=== PATIENT | male | born 1980 | race American Indian/Alaskan Native ===

== ENCOUNTER 2022-01-26 02:11 | Emergency (ER) | payer OTHER ==
[2022-01-26] MEDS ORDERED: ASPIRIN 325 MG TAB PO ONE (02:22)
[2022-01-26 02:57] LABS: Basophils % (Auto) 0.6 % (0.0-1.8); Eosinophils # (Auto) 0.1 K/mm3 (0.0-0.4); Eosinophils % (Auto) 1.8 % (0.0-4.3); Hematocrit 47.8 % (35.5-45.6); Hemoglobin 16.4 gm/dl (11.8-15.2); Lymphocytes # (Auto) 2.3 K/mm3 (1.2-5.4); Lymphocytes % (Auto) 48.6 % (13.4-35.0); Mean Corpuscular HGB Conc 34 % (32-34); Mean Corpuscular Volume 87 fl (84-94); Monocytes # (Auto) 0.5 K/mm3 (0.0-0.8); Platelet Count 184 K/mm3 (140-440); Red Cell Distribution Width 13.1 % (13.2-15.2)
--- NOTE | 2022-01-26 02:59 | XRay Report ---
CHEST 2 VIEWS INDICATION / CLINICAL INFORMATION: chest pain. COMPARISON: None available. FINDINGS: SUPPORT DEVICES: None. HEART / MEDIASTINUM: No significant abnormality. LUNGS / PLEURA: No significant pulmonary or pleural abnormality. No pneumothorax. BONES: No significant osseous abnormality. ADDITIONAL FINDINGS: No significant additional findings. IMPRESSION: 1. No active cardiopulmonary disease. Signer Name: Abdiel Dumont II, MD Signed: 01/26/2022 2:54 AM Workstation Name: [id number]
[2022-01-26 03:12] LABS: Alanine Aminotransferase 32 units/L (7-56); Albumin 4.8 g/dL (3.9-5); BUN/Creatinine Ratio 7; Blood Urea Nitrogen 8 mg/dL (9-20); Calcium 9.5 mg/dL (8.4-10.2); Hemolysis Index 31
--- NOTE | 2022-01-26 07:51 | Emergency Department Report ---
ED General Adult HPI - General Chief complaint: Chest Pain Stated complaint: CHEST PAIN/RAPID HEARTBEAT Time Seen by Provider: 01/26/22 07:34 Source: patient Mode of arrival: Ambulatory Limitations: No Limitations - History of Present Illness Initial comments: Patient is a 41-year-old male who comes to the ER complaining of anxiety. He does have a history of hypertension. However, he thinks that he is allergic to losartan. He thinks that that makes him anxious. Think he does have some anxiety and he is medically noncompliant. I encouraged him to take his blood pressure medicines as instructed. We discussed the pros and cons of hypertension versus anxiety. He is accompanied by family member who endorses his anxiety. Patient has been here all night waiting to be seen. On my exam he is denying any complaints. He is calm cooperative. He does endorse anxiety and says he does not understand where it comes from. He has had it for some time. He does not see anybody for it. He has no SI or HI. Severity scale (0 -10): 0 Improves with: none Worsens with: none Associated Symptoms: denies other symptoms. denies: confusion, chest pain, cough, diaphoresis, fever/chills, headaches, loss of appetite, malaise, nausea/vomiting, rash, seizure, shortness of breath, syncope, weakness Treatments Prior to Arrival: none - Related Data Allergies Allergy/AdvReac Type Severity Reaction Status Date / Time losartan Allergy Unknown Verified 01/26/22 07:51 ED Review of Systems ROS: Stated complaint: CHEST PAIN/RAPID HEARTBEAT Other details as noted in HPI Comment: All other systems reviewed and negative ED Past Medical Hx - Past Medical History Previous Medical History?: Yes Hx Hypertension: Yes Additional medical history: Anxiety - Surgical History Past Surgical History?: No - Family History Family history: no significant - Social History Smoking Status: Never Smoker Substance Use Type: None ED Physical Exam - General Limitations: No Limitations General appearance: alert, in no apparent distress - Head Head exam: Present: atraumatic, normocephalic - Eye Eye exam: Present: normal appearance - ENT ENT exam: Present: mucous membranes moist - Neck Neck exam: Present: normal inspection - Respiratory Respiratory exam: Present: normal lung sounds bilaterally. Absent: respiratory distress - Cardiovascular Cardiovascular Exam: Present: regular rate, normal rhythm. Absent: systolic murmur, diastolic murmur, rubs, gallop - GI/Abdominal GI/Abdominal exam: Present: soft, normal bowel sounds - Rectal Rectal exam: Present: deferred - Extremities Exam Extremities exam: Present: normal inspection - Back Exam Back exam: Present: normal inspection - Neurological Exam Neurological exam: Present: alert, oriented X3 - Psychiatric Psychiatric exam: Present: normal affect, normal mood - Skin Skin exam: Present: warm, dry, intact, normal color. Absent: rash ED Course Vital Signs 01/26/22 01/26/22 07:58 08:13 Temperature 98.7 F 98.2 F Pulse Rate 95 H 60 Respiratory 18 16 Rate Blood Pressure 158/106 150/90 [Left] O2 Sat by Pulse 97 98 Oximetry ED Medical Decision Making - Lab Data Result diagrams: 01/26/22 02:34 01/26/22 02:34 - EKG Data Rate: normal - EKG Data When compared to previous EKG there are: no significant change Interpretation: no acute changes - Radiology Data Radiology results: report reviewed, image reviewed No acute process - Medical Decision Making Lab Results 01/26/22 01/26/22 01/26/22 Range/Units 02:34 02:34 05:29 WBC 4.7 (4.5-11.0) K/mm3 RBC 5.50 H (3.65-5.03) M/mm3 Hgb 16.4 H (11.8-15.2) gm/dl Hct 47.8 H (35.5-45.6) % MCV 87 (84-94) fl MCH 30 (28-32) pg MCHC 34 (32-34) % RDW 13.1 L (13.2-15.2) % Plt Count 184 (140-440) K/mm3 Lymph % (Auto) 48.6 H (13.4-35.0) % Gage % (Auto) 11.0 H (0.0-7.3) % Eos % (Auto) 1.8 (0.0-4.3) % Baso % (Auto) 0.6 (0.0-1.8) % Lymph # (Auto) 2.3 (1.2-5.4) K/mm3 Gage # (Auto) 0.5 (0.0-0.8) K/mm3 Eos # (Auto) 0.1 (0.0-0.4) K/mm3 Baso # (Auto) 0.0 (0.0-0.1) K/mm3 Seg Neutrophils % 38.0 L (40.0-70.0) % Seg Neutrophils # 1.8 (1.8-7.7) K/mm3 Sodium 138 (137-145) mmol/L Potassium 3.6 (3.6-5.0) mmol/L Chloride 101.0 (98-107) mmol/L Carbon Dioxide 21 L (22-30) mmol/L Anion Gap 20 mmol/L BUN 8 L (9-20) mg/dL Creatinine 1.1 (0.8-1.3) mg/dL Estimated GFR > 60 ml/min BUN/Creatinine Ratio 7 % Glucose 141 H (75-100) mg/dL Calcium 9.5 (8.4-10.2) mg/dL Total Bilirubin 0.40 (0.1-1.2) mg/dL AST 21 (5-40) units/L ALT 32 (7-56) units/L Alkaline Phosphatase 73 (35-129) units/L Troponin T < 0.010 < 0.010 (0.00-0.029) ng/mL Total Protein 7.3 (6.3-8.2) g/dL Albumin 4.8 (3.9-5) g/dL Albumin/Globulin Ratio 1.9 % Vital Signs 01/26/22 01/26/22 07:58 08:13 Temperature 98.7 F 98.2 F Pulse Rate 95 H 60 Respiratory 18 16 Rate Blood Pressure 158/106 150/90 [Left] O2 Sat by Pulse 97 98 Oximetry Labs noted Trop negative x2 Blood pressure mildly elevated Patient neurologically intact He is ambulatory, nontoxic and taking p.o. Vital signs are stable. His blood pressure and heart rate are downtrending since he is come to the ER. Patient educated on the importance of medication compliance Patient being discharged home with discharge plan of care including diet, medication, activity and follow-up. He and his family verbalized understanding of plan of care - Differential Diagnosis Acute on chronic hypertension, anxiety Critical care attestation.: If time is entered above; I have spent that time in minutes in the direct care of this critically ill patient, excluding procedure time. ED Disposition Clinical Impression: Anxiety, History of chronic hypertension, Medically noncompliant Disposition: 01 HOME / SELF CARE / HOMELESS Is pt being admited?: No Does the pt Need Aspirin: No Condition: Stable Instructions: Hypertension, Adult, [id number], Managing Anxiety, Adult Additional Instructions: Take your medications as prescribed Follow-up with PCP. Have given you referral below See attached information on anxiety reduction Referrals: KARRIE HUDSON MD [Primary Care Provider] - 3-5 Days Time of Disposition: 08:04
[2022-01-26 08:15] VITALS: BP 150/90
--- NOTE | 2022-01-26 10:26 | Electrocardiograph Report ---
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
== END 2022-01-26 08:15 | disposition home or self-care (01) ==
LOC: ED 02:11
DX: F41.9 Anxiety disorder, unspecified (principal); I10 Essential (primary) hypertension; Z88.8 Allergy status to other drugs, medicaments and biological substances; Z79.899 Other long term (current) drug therapy
CPT/HCPCS: 36415; 71046; 80053; 84484; 85025; 93005; 99283

== ENCOUNTER 2022-01-31 20:24 | Emergency (ER) | payer OTHER ==
[2022-01-31 20:46] VITALS: BP 133/87
[2022-01-31] MEDS ORDERED: ASPIRIN 325 MG TAB PO ONE (20:48)
--- NOTE | 2022-01-31 21:10 | XRay Report ---
CHEST 2 VIEWS INDICATION / CLINICAL INFORMATION: CHEST PAIN. COMPARISON: 01/26/2022 FINDINGS: SUPPORT DEVICES: None. HEART / MEDIASTINUM: No significant abnormality. LUNGS / PLEURA: No significant pulmonary or pleural abnormality. No pneumothorax. ADDITIONAL FINDINGS: No significant additional findings. IMPRESSION: 1. No acute findings. Signer Name: Guillermo Diehl MD Signed: 01/31/2022 9:06 PM Workstation Name: [id number]
[2022-01-31 21:18] LABS: Basophils % (Auto) 0.4 % (0.0-1.8); Eosinophils # (Auto) 0.1 K/mm3 (0.0-0.4); Eosinophils % (Auto) 1.5 % (0.0-4.3); Hematocrit 47.6 % (35.5-45.6); Hemoglobin 16.8 gm/dl (11.8-15.2); Lymphocytes # (Auto) 1.9 K/mm3 (1.2-5.4); Lymphocytes % (Auto) 41.7 % (13.4-35.0); Mean Corpuscular HGB Conc 35 % (32-34); Mean Corpuscular Volume 86 fl (84-94); Monocytes # (Auto) 0.5 K/mm3 (0.0-0.8); Monocytes % (Auto) 11.4 % (0.0-7.3); Platelet Count 185 K/mm3 (140-440); Red Blood Count 5.52 M/mm3 (3.65-5.03); Red Cell Distribution Width 13.8 % (13.2-15.2)
[2022-01-31 21:40] LABS: Alanine Aminotransferase 30 units/L (7-56); Albumin 4.9 g/dL (3.9-5); BUN/Creatinine Ratio 12; Blood Urea Nitrogen 14 mg/dL (9-20); Calcium 9.7 mg/dL (8.4-10.2); Hemolysis Index 6
--- NOTE | 2022-02-01 05:12 | Emergency Department Report ---
ED General Adult HPI - General Chief complaint: Chest Pain Stated complaint: CHEST PAIN/HEART RATE HIGH WHEN SLEEP Source: patient Mode of arrival: Ambulatory Limitations: No Limitations - History of Present Illness Initial comments: Patient is a 41-year-old -[place] male with a history of anxiety and hypertension who presents to the ED with complaint of persistent palpitations and left-sided chest pain intermittently for the last 3 months. Patient states that he has previously been evaluated by his primary care physician and insulation board calender operator and no acute abnormalities were found in his tests. Patient also states that 3 days ago he had a normal stress test with his insulation board calender operator but stated that he also has a lot of social issues at this time making him anxious and with the frequent palpitations and elevated heart rate worsened by his anxiety he is scared of going to sleep and therefore is unable to sleep. Patient states that this anxiety and palpitations has persisted especially in the last 2 weeks because of what he terms as "cardiac problems" that he thinks he might have. Patient denies dizziness, syncope, shortness of breath, nausea and vomiting, diaphoresis, headache, abdominal pain, back pain, neck pain, jaw pain, change in vision, fever and chills or cough. MD Complaint: left sided chest pain and palpitation -: Sudden, month(s) (3) Location: chest Radiation: non-radiation Severity scale (0 -10): 3 Quality: dull Consistency: intermittent Improves with: none Worsens with: none Associated Symptoms: denies other symptoms, chest pain (Left-sided), loss of appetite, other (Anxiety). denies: confusion, cough, diaphoresis, fever/chills, headaches, malaise, nausea/vomiting, rash, seizure, shortness of breath, syncope, weakness Treatments Prior to Arrival: none - Related Data Previous Rx's Medication Instructions Recorded Last Taken Type hydrOXYzine PAMOATE [Vistaril] 50 mg PO Q8HR PRN #30 capsule 02/01/22 Unknown Rx Allergies Allergy/AdvReac Type Severity Reaction Status Date / Time losartan Allergy Unknown Verified 01/26/22 07:51 ED Review of Systems ROS: Stated complaint: CHEST PAIN/HEART RATE HIGH WHEN SLEEP Other details as noted in HPI Constitutional: denies: chills, fever Eyes: denies: eye pain, eye discharge, vision change ENT: denies: ear pain, throat pain Respiratory: denies: cough, shortness of breath, wheezing Cardiovascular: chest pain (Left-sided chest pain), palpitations (Trach) Endocrine: no symptoms reported Gastrointestinal: denies: abdominal pain, nausea, vomiting, diarrhea Genitourinary: denies: urgency, dysuria, frequency, hematuria, testicular pain, testicular mass Musculoskeletal: denies: back pain, joint swelling, arthralgia Skin: denies: rash, lesions Neurological: denies: headache, weakness, paresthesias Psychiatric: anxiety. denies: depression, auditory hallucinations, visual hallucinations, homicidal thoughts, suicidal thoughts Hematological/Lymphatic: denies: easy bleeding, easy bruising ED Past Medical Hx - Past Medical History Hx Hypertension: Yes Hx Psychiatric Treatment: Yes (Anxiety) Additional medical history: Anxiety - Social History Smoking Status: Never Smoker Substance Use Type: None - Medications Home Medications: Home Medications Medication Instructions Recorded Confirmed Last Taken Type hydrOXYzine PAMOATE [Vistaril] 50 mg PO Q8HR PRN #30 capsule 02/01/22 Unknown Rx ED Physical Exam - General Limitations: No Limitations General appearance: alert, in no apparent distress - Head Head exam: Present: atraumatic, normocephalic, normal inspection - Eye Eye exam: Present: normal appearance, PERRL, EOMI Pupils: Present: normal accommodation - ENT ENT exam: Present: normal exam, normal orophraynx, mucous membranes moist, TM's normal bilaterally, normal external ear exam - Neck Neck exam: Present: normal inspection, full ROM. Absent: tenderness - Respiratory Respiratory exam: Present: normal lung sounds bilaterally. Absent: respiratory distress, wheezes, rales, rhonchi, chest wall tenderness, accessory muscle use, decreased breath sounds, prolonged expiratory - Cardiovascular Cardiovascular Exam: Present: normal rhythm, tachycardia, normal heart sounds. Absent: systolic murmur, diastolic murmur, rubs, gallop - GI/Abdominal GI/Abdominal exam: Present: soft, normal bowel sounds. Absent: tenderness, guarding, rebound, hyperactive bowel sounds, hypoactive bowel sounds, organomegaly, mass - Extremities Exam Extremities exam: Present: normal inspection, full ROM, normal capillary refill - Back Exam Back exam: Present: normal inspection, full ROM. Absent: CVA tenderness (R), CVA tenderness (L), muscle spasm, paraspinal tenderness, vertebral tenderness - Neurological Exam Neurological exam: Present: alert, oriented X3, CN II-XII intact, normal gait, reflexes normal - Psychiatric Psychiatric exam: Present: normal affect, normal mood - Skin Skin exam: Present: warm, dry, intact, normal color. Absent: rash ED Course Vital Signs 01/31/22 20:32 Temperature 98.7 F Pulse Rate 108 H Respiratory 18 Rate Blood Pressure 133/87 O2 Sat by Pulse 100 Oximetry ED Medical Decision Making - Lab Data Result diagrams: 01/31/22 20:52 01/31/22 20:52 - EKG Data EKG shows normal: sinus rhythm Rate: normal - EKG Data Interpretation: normal EKG 02/01/22 05:30 EKG shows normal sinus rhythm with a ventricular rate of [address] elevation probably normal early repolarization patterns and leads V1, V2 and V3. - Radiology Data Radiology results: report reviewed, image reviewed [facility] [address] [place] [address] XRay Report Signed Patient: POOL AGUILAR MR#: [id number] : 1980 Acct:[id number] Age/Sex: 41 / M ADM Date: 01/31/22 Loc: ED Attending Dr: Ordering Physician: SULEIMAN RODRÍGUEZ MD Date of Service: 01/31/22 Procedure(s): XR chest routine 2V Accession Number(s): [id number] cc: ED MD ANNE Fluoro Time In Minutes: CHEST 2 VIEWS INDICATION / CLINICAL INFORMATION: CHEST PAIN. COMPARISON: 01/26/2022 FINDINGS: SUPPORT DEVICES: None. HEART / MEDIASTINUM: No significant abnormality. LUNGS / PLEURA: No significant pulmonary or pleural abnormality. No pneumothorax. ADDITIONAL FINDINGS: No significant additional findings. IMPRESSION: 1. No acute findings. Signer Name: Guillermo Diehl MD Signed: 01/31/2022 9:06 PM Workstation Name: [id number] Transcribed By: CW Dictated By: JASMIN DIEHL MD Electronically Authenticated By: JASMIN DIEHL MD Signed Date/Time: 01/31/222105 DD/ 05 TD/TT: - Medical Decision Making This is a 41-year-old -[place] male with a history of anxiety and hypertension who presents to the ED with complaint of persistent palpitations and left-sided chest pain intermittently for the last 3 months. Patient states that he has previously been evaluated by his primary care physician and insulation board calender operator and no acute abnormalities were found in his tests. Patient also states that 3 days ago he had a normal stress test with his insulation board calender operator but stated that he also has a lot of social issues at this time making him anxious and with the frequent palpitations and elevated heart rate worsened by his anxiety he is scared of going to sleep and therefore is unable to sleep. Patient states that this anxiety and palpitations has persisted especially in the last 2 weeks because of what he terms as "cardiac problems" that he thinks he might have. In the ED, patient is alert and oriented x3 and is not in any distress. EKG shows normal sinus rhythm with a ventricular rate of [address] elevation probably normal early repolarization pattern in leads V1 through lead V3. Chest x-ray showed no acute cardiopulmonary abnormalities abnormalities. All lab test results were reviewed including initial, 3-hour and 6-hour troponin levels were all nonactionable. Patient's heart score is 1, and patient has had multiple cardiac related tests including most recent stress test 3 days ago which were all normal. Patient symptoms are likely due to anxiety given the social issues he may be going through at this time as well as the fixation he has regarding a possible cardiac condition despite reassurance by his insulation board calender operator during the month mainly visits in the last 3 months. Patient was therefore discharged home on Vistaril and advised to follow-up with his primary care physician in 5 to 7 days for reevaluation or return to the ED immediately if symptoms get worse. - Differential Diagnosis ACS; Pneumonia, PE; Costochondritis; Anxiety Critical care attestation.: If time is entered above; I have spent that time in minutes in the direct care of this critically ill patient, excluding procedure time. ED Disposition Clinical Impression: Anxiety as acute reaction to exceptional stress, Intermittent palpitations, Acute nonspecific chest pain with low risk of coronary artery disease Disposition: 01 HOME / SELF CARE / HOMELESS Is pt being admited?: No Does the pt Need Aspirin: No Condition: Stable Instructions: Generalized Anxiety Disorder, Adult, Chest Pain (ED), Nonspecific Chest Pain, Adult, [id number], Palpitations, [id number] Additional Instructions: All lab test results were reviewed and are all nonactionable. Chest x-ray showed no acute cardiopulmonary abnormalities or pneumonitis. Your symptoms are likely due to anxiety since all lab test results previously performed by your primary care physician, your insulation board calender operator and in this ED have all been unremarkable. Therefore take medications with food, drink plenty of fluids and follow-up with your primary care physician in 5 to 7 days for reevaluation or return to the ED immediately if symptoms get worse. Prescriptions: hydrOXYzine PAMOATE [Vistaril] 50 mg PO Q8HR PRN #30 capsule PRN Reason: Anxiety Referrals: KARRIE HUDSON MD [Primary Care Provider] - 3-5 Days Forms: Work/School Release Form(ED) Time of Disposition: 05:12 Print Language: FAROESE
--- NOTE | 2022-02-01 11:23 | Electrocardiograph Report ---
[facility] Test Date: 2022-01-31 Test Time: 20:35:49 Pat Name: POOL AGUILAR Department: Room: Gender: M Wireless Manager: KAROL : 1980 Requested By: RACHEAL SCHUMACHER Order Number: [id number] Reading MD: Vasiliy Ballard Measurements Intervals Strang Rate: 86 P: 57 NH: 156 QRS: 83 QRSD: 82 T: 7 QT: 328 QTc: 393 Interpretive Statements Sinus rhythm nonspecific st-t Compared to ECG 01/26/2022 02:20:06 Electronically Signed On 02-01-2022 11:23:03 EDT by Vasiliy Ballard
== END 2022-02-01 07:56 | disposition home or self-care (01) ==
LOC: ED 20:24
DX: F43.0 Acute stress reaction (principal); R07.89 Other chest pain; F41.1 Generalized anxiety disorder; I10 Essential (primary) hypertension; Z88.8 Allergy status to other drugs, medicaments and biological substances; Z79.899 Other long term (current) drug therapy
CPT/HCPCS: 36415; 71046; 80053; 84484; 85025; 93005; 99283

== ENCOUNTER 2022-02-13 21:58 | Emergency (ER) | payer OTHER ==
[2022-02-13] MEDS ORDERED: ASPIRIN 325 MG TAB PO ONE (22:13)
[2022-02-13] MEDS ORDERED: SODIUM CHLORIDE 0.9% 1000 ML 1,000 ML IV ONE (22:42)
--- NOTE | 2022-02-13 22:43 | XRay Report ---
CHEST 2 VIEWS INDICATION / CLINICAL INFORMATION: CHEST PAIN. COMPARISON: 2 views of the chest from 01/31/2022. FINDINGS: SUPPORT DEVICES: None. HEART / MEDIASTINUM: No significant abnormality. LUNGS / PLEURA: No significant pulmonary abnormality. No significant pleural effusion. No pneumothora x. ADDITIONAL FINDINGS: No significant additional findings. IMPRESSION: 1. No acute abnormality of the chest. Signer Name: Jacques Cantrell MD Signed: 02/13/2022 10:38 PM Workstation Name: [id number]
[2022-02-13] MEDS ORDERED: MIDAZOLAM 2 MG/2 ML INJ IV ONE (22:44)
--- NOTE | 2022-02-13 22:44 | Emergency Department Report ---
ED General Adult HPI - General Chief complaint: Chest Pain Stated complaint: HEART BEATING VERY FAST Time Seen by Provider: 02/13/22 22:42 Source: patient, RN notes reviewed, old records reviewed Mode of arrival: Ambulatory Limitations: No Limitations - History of Present Illness Initial comments: The patient was evaluated in the emergency department for symptoms described in the history of present illness. He/she was evaluated in the context of the global COVID-19 pandemic, which necessitated consideration that the patient might be at risk for infection with the virus that causes COVID-19. Institutional protocols and algorithms that pertain to the evaluation of patients at risk for COVID-19 are in a state of rapid change based on information released by regulatory bodies including the CDC and federal and state organizations. These policies and algorithms were followed during the patient's care in the emergency department. Please note that these policies, procedures and recommendations changed on a rapid basis. Cardiology: [facility] cardiology/Dr. Cagle This patient is a pleasant and cooperative 41-year-old gentleman, who presents to the ER today with a complaint of painless heart racing. The patient denies DVT/PE risk factors. He denies physical pain at this time. He reports having seen his outpatient cosmetic account coordinator, and reports having had an unremarkable outpatient cardiac restratification, including a reported negative stress test. He does report poor sleep, he believes that he snores quite a bit at night. He does not know if he has a formal diagnosis of obstructive sleep apnea. He does report sleeping only 1 to 3 hours per night, and reports sleepiness when in front of the TV. His symptoms in the emergency room are much improved with administration of Versed, and normal saline. He reports that he feels like he is essentially back to his baseline. Denies contributory family history, denies alcohol, and drug abuse. He feels like he is back to his baseline. This patient has presented to this hospital multiple times for similar complaints in the past. Has always had unremarkable work-ups while here in the emergency room. Specifically, multiple negative troponins. -: Sudden Consistency: intermittent Improves with: none Worsens with: none Associated Symptoms: denies other symptoms - Related Data Previous Rx's Medication Instructions Recorded Last Taken Type hydrOXYzine PAMOATE [Vistaril] 50 mg PO Q8HR PRN #30 capsule 02/01/22 Unknown Rx Allergies Allergy/AdvReac Type Severity Reaction Status Date / Time losartan Allergy Unknown Verified 01/26/22 07:51 ED Review of Systems ROS: Stated complaint: HEART BEATING VERY FAST Other details as noted in HPI Constitutional: denies: malaise Eyes: denies: eye discharge ENT: denies: congestion Respiratory: denies: wheezing Cardiovascular: palpitations. denies: chest pain Gastrointestinal: denies: abdominal pain, hematemesis, melena, hematochezia Genitourinary: denies: dysuria Neurological: denies: weakness Psychiatric: anxiety ED Past Medical Hx - Past Medical History Hx Hypertension: Yes Hx Psychiatric Treatment: Yes (Anxiety) Additional medical history: Anxiety - Social History Smoking Status: Never Smoker Substance Use Type: None - Medications Home Medications: Home Medications Medication Instructions Recorded Confirmed Last Taken Type hydrOXYzine PAMOATE [Vistaril] 50 mg PO Q8HR PRN #30 capsule 02/01/22 Unknown R x ED Physical Exam - General Limitations: No Limitations General appearance: alert, in no apparent distress - Head Head exam: Present: atraumatic, normocephalic - Eye Eye exam: Present: normal appearance, EOMI. Absent: nystagmus - ENT ENT exam: Present: normal exam, normal orophraynx, mucous membranes moist, normal external ear exam - Neck Neck exam: Present: normal inspection, full ROM. Absent: tenderness, meningismus - Respiratory Respiratory exam: Present: normal lung sounds bilaterally. Absent: respiratory distress, wheezes, rales, rhonchi, stridor, decreased breath sounds - Cardiovascular Cardiovascular Exam: Present: regular rate, normal rhythm, normal heart sounds. Absent: bradycardia, tachycardia, irregular rhythm, systolic murmur, diastolic murmur, rubs, gallop - GI/Abdominal GI/Abdominal exam: Present: soft. Absent: distended, tenderness, guarding, rebound, rigid, pulsatile mass - Rectal Rectal exam: Present: deferred - Extremities Exam Extremities exam: Present: normal inspection, full ROM, other (2+ pulses noted in the bilateral upper and lower extremities. There is no palpable cord. negative Homans sign. Muscular compartments are soft. The pelvis is stable.). Absent: pedal edema, calf tenderness - Back Exam Back exam: Present: normal inspection. Absent: tenderness, CVA tenderness (R), CVA tenderness (L), paraspinal tenderness, vertebral tenderness - Neurological Exam Neurological exam: Present: alert, oriented X3, normal gait, other (No facial droop. Tongue midline. Extraocular movements intact bilaterally. Facial sensation intact to light touch in V1, V2, V3 distribution bilaterally. 5 and a 5 strength in 4 extremities. Sensation intact to light touch in 4 extremities.). Absent: motor sensory deficit - Psychiatric Psychiatric exam: Present: normal affect, normal mood - Skin Skin exam: Present: warm, dry, intact, normal color. Absent: rash ED Course Vital Signs 02/13/22 02/13/22 22:11 22:55 Temperature 99.3 F Pulse Rate 128 H Respiratory 18 18 Rate O2 Sat by Pulse 98 98 Oximetry - Reevaluation(s) Reevaluation #1: 02/14/22 01:02 Patient at low risk for major adverse cardiac event as per heart score. - Pulse Oximetry Interpretation Digit-Finger Initial Pulse Oximetry Readin O2 Sat by Pulse Oximetry: 99 Actions Taken: none ED Medical Decision Making - Lab Data Result diagrams: 02/13/22 22:33 02/13/22 22:33 Vital Signs 02/13/22 02/13/22 22:11 22:55 Temperature 99.3 F Pulse Rate 128 H Respiratory 18 18 Rate O2 Sat by Pulse 98 98 Oximetry Vital Signs 02/13/22 02/13/22 22:11 22:55 Temperature 99.3 F Pulse Rate 128 H Respiratory 18 18 Rate O2 Sat by Pulse 98 98 Oximetry Lab Results 02/13/22 02/13/22 02/13/22 Range/Units 22:33 22:33 23:34 WBC 5.3 (4.5-11.0) K/mm3 RBC 5.49 H (3.65-5.03) M/mm3 Hgb 16.1 H (11.8-15.2) gm/dl Hct 47.8 H (35.5-45.6) % MCV 87 (84-94) fl MCH 29 (28-32) pg MCHC 34 (32-34) % RDW 13.3 (13.2-15.2) % Plt Count 160 (140-440) K/mm3 Lymph % (Auto) 39.4 H (13.4-35.0) % [place] % (Auto) 10.3 H (0.0-7.3) % Eos % (Auto) 1.5 (0.0-4.3) % Baso % (Auto) 0.5 (0.0-1.8) % Lymph # (Auto) 2.1 (1.2-5.4) K/mm3 [place] # (Auto) 0.5 (0.0-0.8) K/mm3 Eos # (Auto) 0.1 (0.0-0.4) K/mm3 Baso # (Auto) 0.0 (0.0-0.1) K/mm3 Seg Neutrophils % 48.3 (40.0-70.0) % Seg Neutrophils # 2.6 (1.8-7.7) K/mm3 PT 13.1 (12.2-14.9) Sec. INR 0.90 (0.87-1.13) Sodium 134 L (137-145) mmol/L Potassium 3.4 L (3.6-5.0) mmol/L Chloride 99.3 (98-107) mmol/L Carbon Dioxide 21 L (22-30) mmol/L Anion Gap 17 mmol/L BUN 9 (9-20) mg/dL Creatinine 1.1 (0.8-1.3) mg/dL Estimated GFR > 60 ml/min BUN/Creatinine Ratio 8 % Glucose 260 H (75-100) mg/dL Calcium 9.7 (8.4-10.2) mg/dL Magnesium (1.7-2.3) mg/dL Total Bilirubin 0.30 (0.1-1.2) mg/dL AST 15 (5-40) units/L ALT 24 (7-56) units/L Alkaline Phosphatase 78 (35-129) units/L Total Creatine Kinase (55-170) units/L Troponin T < 0.010 (0.00-0.029) ng/mL Total Protein 7.0 (6.3-8.2) g/dL Albumin 4.7 (3.9-5) g/dL Albumin/Globulin Ratio 2.0 % TSH (0.270-4.200) mlU/mL 02/13/22 02/13/22 Range/Units 23:34 23:34 WBC (4.5-11.0) K/mm3 RBC (3.65-5.03) M/mm3 Hgb (11.8-15.2) gm/dl Hct (35.5-45.6) % MCV (84-94) fl MCH (28-32) pg MCHC (32-34) % RDW (13.2-15.2) % Plt Count (140-440) K/mm3 Lymph % (Auto) (13.4-35.0) % [place] % (Auto) (0.0-7.3) % Eos % (Auto) (0.0-4.3) % Baso % (Auto) (0.0-1.8) % Lymph # (Auto) (1.2-5.4) K/mm3 [place] # (Auto) (0.0-0.8) K/mm3 Eos # (Auto) (0.0-0.4) K/mm3 Baso # (Auto) (0.0-0.1) K/mm3 Seg Neutrophils % (40.0-70.0) % Seg Neutrophils # (1.8-7.7) K/mm3 PT (12.2-14.9) Sec. INR (0.87-1.13) Sodium (137-145) mmol/L Potassium (3.6-5.0) mmol/L Chloride (98-107) mmol/L Carbon Dioxide (22-30) mmol/L Anion Gap mmol/L BUN (9-20) mg/dL Creatinine (0.8-1.3) mg/dL Estimated GFR ml/min BUN/Creatinine Ratio % Glucose (75-100) mg/dL Calcium (8.4-10.2) mg/dL Magnesium 2.00 (1.7-2.3) mg/dL Total Bilirubin (0.1-1.2) mg/dL AST (5-40) units/L ALT (7-56) units/L Alkaline Phosphatase (35-129) units/L Total Creatine Kinase 98 (55-170) units/L Troponin T (0.00-0.029) ng/mL Total Protein (6.3-8.2) g/dL Albumin (3.9-5) g/dL Albumin/Globulin Ratio % TSH 2.990 (0.270-4.200) mlU/mL - EKG Data -: EKG Interpreted by Nc EKG shows normal: sinus rhythm Rate: normal - EKG Data Interpretation: unchanged when compared t 02/14/22 00:58 EKG is interpreted at 22: 00 Sinus rhythm, tachycardia, rate 113 bpm. Normal axis, normal P wave axis, high left ventricular voltage, UT interval 205 ms, otherwise, intervals are essentially unremarkable. The EKG today appears to be unchanged when compared to prior EKG January, with the exception of pseudo normalized QRS complex in aVL. - Radiology Data Radiology results: pending, report reviewed, image reviewed CHEST 2 VIEWS INDICATION / CLINICAL INFORMATION: CHEST PAIN. COMPARISON: 2 views of the chest from 01/31/2022. FINDINGS: SUPPORT DEVICES: None. HEART / MEDIASTINUM: No significant abnormality. LUNGS / PLEURA: No significant pulmonary abnormality. No significant pleural effusion. No pneumothorax. ADDITIONAL FINDINGS: No significant additional findings. IMPRESSION: 1. No acute abnormality of the chest. Signer Name: Jacques Cantrell MD Signed: 02/13/2022 9:38 PM Workstation Name: [id number] - Medical Decision Making Differential diagnosis, including but not limited to: Anxiety, sleep apnea, electrolyte derangement, thyroid derangement Assessment and plan: 41-year-old gentleman, with resolved tachycardia, who is not currently tachycardic, tachypneic or hypoxic, who denies DVT and PE risk factors, who is low risk by Wells criteria for pulmonary embolism, EKG unchanged from prior, who denies chest pain, reports recent negative cardiac stress test, multiple recent negative troponins, presenting with a complaint of painless palpitations. Laboratory studies are essentially unremarkable, with exception of potassium of 3.4. TSH magnesium within acceptable limits. Suspect that patient may have undiagnosed obstructive sleep apnea. Using online applications on this patient's personal cell phone, with his permission, patient was provided a video to watch on obstructive sleep apnea, providing patient appropriate instructions and background information. I have advised this patient to follow-up with an outpatient primary care doctor, cosmetic account coordinator or sleep specialist to have outpatient sleep study set up and organize, as we cannot provide this here in the emergency room. The patient is observed in this department for hours without clinical decompensation, and is hemodynamically stable. Resting heart rate 75 bpm at this time, tachycardia is resolved, he is suitable for discharge with outpatient follow-up Critical care attestation.: If time is entered above; I have spent that time in minutes in the direct care of this critically ill patient, excluding procedure time. ED Disposition Clinical Impression: Intermittent palpitations, Hypokalemia Disposition: 01 HOME / SELF CARE / HOMELESS Is pt being admited?: No Does the pt Need Aspirin: No Condition: Good Additional Instructions: As we discussed, we suspect that the patient may have undiagnosed obstructive sleep apnea, which may be contributing to snoring, and intermittent palpita tions. It is recommended that the patient follow-up with a primary care doctor, pulmonology/sleep specialist, or outpatient cosmetic account coordinator within the next week, to have an outpatient sleep study arranged, to rule in or rule out diagnosis of obstructive sleep apnea. Dr. Cagle is your cosmetic account coordinator. Dr. Duarte Is a local pulmonology sleep specialist. [facility] is a local medical clinic. Avoid consumption of alcohol, tobacco and smoke products. Avoid consumption of caffeinated beverages, coffee, tea, and stimulants. Patient may consume foods that are high in potassium/magnesium/calcium, such as banana, avocado, or potato. Please return to the emergency room right away with new pain, worsened pain, migration of pain, projectile vomiting, change in mental status, confusion, inability tolerate liquid feeds, new, worsened or different symptoms not present on the initial emergency room evaluation Referrals: CHRISTOPHER CAGLE MD [Staff Physician] - 3-5 Days ACE DUARTE MD [Staff Physician] - 3-5 Days [facility] [Provider Group] - 3-5 Days Forms: Work/School Release Form(ED)
[2022-02-13 22:46] LABS: Basophils % (Auto) 0.5 % (0.0-1.8); Eosinophils # (Auto) 0.1 K/mm3 (0.0-0.4); Eosinophils % (Auto) 1.5 % (0.0-4.3); Hematocrit 47.8 % (35.5-45.6); Hemoglobin 16.1 gm/dl (11.8-15.2); Lymphocytes # (Auto) 2.1 K/mm3 (1.2-5.4); Lymphocytes % (Auto) 39.4 % (13.4-35.0); Mean Corpuscular HGB Conc 34 % (32-34); Mean Corpuscular Volume 87 fl (84-94); Monocytes # (Auto) 0.5 K/mm3 (0.0-0.8); Monocytes % (Auto) 10.3 % (0.0-7.3); Platelet Count 160 K/mm3 (140-440); Red Blood Count 5.49 M/mm3 (3.65-5.03); Red Cell Distribution Width 13.3 % (13.2-15.2)
[2022-02-13 23:07] LABS: Alanine Aminotransferase 24 units/L (7-56); Albumin 4.7 g/dL (3.9-5); BUN/Creatinine Ratio 8; Blood Urea Nitrogen 9 mg/dL (9-20); Calcium 9.7 mg/dL (8.4-10.2); Hemolysis Index 12
[2022-02-13] MEDS ORDERED: POTASSIUM CHLORIDE ER 20 MEQ TAB PO ONE (23:50)
[2022-02-14] LABS: INR 0.9 (0.87-1.13)
[2022-02-14 01:00] VITALS: BP 147/95
--- NOTE | 2022-02-14 18:17 | Electrocardiograph Report ---
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
== END 2022-02-14 01:30 | disposition home or self-care (01) ==
LOC: ED 21:58
DX: R00.2 Palpitations (principal); E87.6 Hypokalemia; I10 Essential (primary) hypertension; F41.9 Anxiety disorder, unspecified; Z91.09 Other allergy status, other than to drugs and biological substances; Z79.899 Other long term (current) drug therapy
CPT/HCPCS: 36415; 71046; 80053; 82550; 83735; 84443; 84484; 85025; 85610; 93005; 96361; 96374; 99284; J2250; J7030

== ENCOUNTER 2022-03-08 16:25 | Emergency (ER) | payer OTHER ==
[2022-03-08 16:38] VITALS: BP 132/93
--- NOTE | 2022-03-09 10:05 | Electrocardiograph Report ---
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
== END 2022-03-09 04:30 | disposition left against medical advice (07) ==
LOC: ED 16:25
DX: R00.0 Tachycardia, unspecified (principal); Z53.21 Procedure and treatment not carried out due to patient leaving prior to being seen by health care provider
CPT/HCPCS: 93005

== ENCOUNTER 2022-06-25 16:54 | Emergency (ER) | payer OTHER ==
[2022-06-25 17:26] VITALS: BP 160/96
--- NOTE | 2022-06-25 18:30 | XRay Report ---
CHEST 2 VIEWS INDICATION / CLINICAL INFORMATION: Chest Pain. COMPARISON: 02/13/2022 FINDINGS: SUPPORT DEVICES: None. HEART / MEDIASTINUM: No significant abnormality. LUNGS / PLEURA: No significant pulmonary or pleural abnormality. No pneumothorax. ADDITIONAL FINDINGS: No significant additional findings. IMPRESSION: 1. No acute findings. Signer Name: Eugene Phan DO Signed: 06/25/2022 6:25 PM Workstation Name: [id number]
[2022-06-25 19:29] LABS: Basophils % (Auto) 0.3 % (0.0-1.8); Eosinophils # (Auto) 0.1 K/mm3 (0.0-0.4); Eosinophils % (Auto) 2.5 % (0.0-4.3); Hematocrit 42.5 % (35.5-45.6); Lymphocytes % (Auto) 19.3 % (13.4-35.0); Mean Corpuscular HGB Conc 35 % (32-34); Mean Corpuscular Volume 85 fl (84-94); Monocytes # (Auto) 0.8 K/mm3 (0.0-0.8); Monocytes % (Auto) 14.5 % (0.0-7.3); Platelet Count 160 K/mm3 (140-440); Red Blood Count 4.99 M/mm3 (3.65-5.03); Red Cell Distribution Width 12.9 % (13.2-15.2)
[2022-06-25 19:41] LABS: Alanine Aminotransferase 15 units/L (7-56); Albumin 4.4 g/dL (3.9-5); BUN/Creatinine Ratio 10; Blood Urea Nitrogen 10 mg/dL (9-20); Hemolysis Index 8
[2022-06-25 19:44] LABS: INR 0.9 (0.87-1.13); Partial Thromboplastin Time 30.5 Sec. (24.2-36.6)
== END 2022-06-25 23:59 | disposition home or self-care (01) ==
LOC: ED 16:54
DX: R07.9 Chest pain, unspecified (principal); Z53.21 Procedure and treatment not carried out due to patient leaving prior to being seen by health care provider
CPT/HCPCS: 36415; 71046; 80053; 84484; 85025; 85610; 85730; 93005